=== PATIENT | male | born 1975 | race Hispanic/Latino ===

== ENCOUNTER 2018-07-15 11:50 | Emergency (ER) | payer OTHER ==
[~2018-07-15] VITALS: Ht 160 cm; Wt 78.9 kg
[2018-07-15] MEDS ORDERED: SODIUM CHLORIDE 0.9% 1000ML 1,000 ML IV STA (12:26)
[2018-07-15] MEDS ORDERED: KETOROLAC TROMETHAMINE 30 MG/ML VIAL IV STA (12:26)
[2018-07-15] MEDS ORDERED: DIPHENHYDRAMINE HCL INJ 50 MG/ML VIAL IV ONE (12:30)
[2018-07-15] MEDS ORDERED: METOCLOPRAMIDE HCL 10 MG/2ML VIAL IV ONE (12:30)
--- NOTE | 2018-07-15 13:06 | Diagnostic Imaging Report ---
EXAMINATION: CXR 2 VIEW - HOPD INDICATION: Chest pain COMPARISON: None FINDINGS: TUBES and LINES: None. LUNGS: Lungs are well inflated. Lungs are clear. There is no evidence of pneumonia or pulmonary edema. PLEURA: No pleural effusion or pneumothorax. HEART AND MEDIASTINUM: The cardiomediastinal silhouette is unremarkable. BONES AND SOFT TISSUES: No acute osseous lesion. Soft tissues are unremarkable. UPPER ABDOMEN: No free air under the diaphragm. IMPRESSION: No acute radiographic abnormality. Signed by: Dr. Asad Pittman MD on 07/15/2018 1:02 PM
--- NOTE | 2018-07-15 13:25 | Diagnostic Imaging Report ---
History: Headache, dizziness Comparison studies: None Technique: Axial images were obtained from the skull base to the vertex. Coronal and sagittal reconstructions obtained from the axial data. Dose modulation, iterative reconstruction, and/or weight based adjustment of the mA/kV was utilized to reduce the radiation dose to as low as reasonably achievable. Findings: Scalp/skull: No abnormalities. No fractures, blastic or lytic lesions. Extra-axial spaces: No masses. No fluid collections. Brain sulci: Appropriate for age. Ventricles: Normal in size and configuration. No hydrocephalus. Parenchyma: No abnormal densities. No masses, hemorrhage, acute or chronic cortical vascular insults. Sellar/suprasellar region: No abnormalities Craniocervical junction: Patent foramen magnum. No Chiari one malformation. IMPRESSION: No abnormalities . Signed by: DR Ismael Nash M.D. on 07/15/2018 1:22 PM
== END 2018-07-15 14:41 | disposition home or self-care (01) ==
LOC: FSED 11:50
DX: G44.211 Episodic tension-type headache, intractable (principal); R11.0 Nausea
CPT/HCPCS: 70450; 71046; 80053; 81003; 82553; 84484; 85025; 93005; 99284; J1200; J1885; J2765; J7030

== ENCOUNTER 2019-03-31 01:36 | Emergency (ER) | payer OTHER ==
[~2019-03-31] VITALS: Ht 160 cm; Wt 78.9 kg
--- OUTSIDE RECORDS SUMMARY | 2019-03-31 01:39 | XMS REPORT ---
Author Author [facility] Address Unknown Phone Unavailable Care Team Providers Care Serials Librarian Name Role Phone Melvin OLVERA Unavailable Unavailable Problems This patient has no known problems. Allergies, Adverse Reactions, Alerts This patient has no known allergies or adverse reactions. Medications This patient has no known medications. Results Test Description Test Time Test Comments Text Results Atomic Results Result Comments CT BRAIN WO-HOPD 2018-07-15 13:20:00 [place] [id number] Patient Name: ANDREA ZUNIGA MR #: [id number] : 1975 Age/Sex: 42/M Req #: [id number] Adm Physician: Ordered by: ADRIANA OLVERA MD Report #: [id number] Location: [facility] Room/Bed: Procedure: [id number] HOPD/CT BRAIN WO-HOPD Exam Date: 07/15/18 Exam Time: 1302 REPORT STATUS: Signed History: Headache, dizziness Comparison studies: None Technique: Axial images were obtained from the skull base to the vertex. Coronal and sagittal reconstructions obtained from the axial data. Dose modulation, iterative reconstruction, and/or weight based adjustment of the mA/kV was utilized to reduce the radiation dose to as low as reasonably achievable. Findings: Scalp/skull: No abnormalities. No fractures, blastic or lytic lesions. Extra-axial spaces: No masses. No fluid collections. Brain sulci: Appropriate for age. Ventricles: Normal in size and configuration. No hydrocephalus. Parenchyma: No abnormal densities. No masses, hemorrhage, acute or chronic cortical vascular insults. Sellar/suprasellar region: No abnormalities Craniocervical junction: Patent foramen magnum. No Chiari one malformation. IMPRESSION: No abnormalities . Signed by: DR Ismael Nash M.D. on 07/15/2018 1:22 PM Dictated By: ISMAEL BLANDON MD 1322 Transcribed By: RADHA on 07/15/18 1322 COPY TO: ADRIANA OLVERA MD CXR 2 VIEW - HOPD 2018-07-15 13:01:00 [place] [address] Patient Name: ANDREA ZUNIGA MR #: [id number] : 1975 Age/Sex: 42/M Req #: [id number] Adm Physician: Ordered by: ADRIANA OLVERA MD Report #: [id number] Location: [facility] Room/Bed: Procedure: [id number] HOPD/CXR 2 VIEW - HOPD Exam Date: 07/15/18 Exam Time: 1253 REPORT STATUS: Signed EXAMINATION: CXR 2 VIEW - HOPD INDICATION: Chest pain COMPARISON: None FINDINGS: TUBES and LINES: None. LUNGS: Lungs are well inflated. Lungs are clear. There is no evidence of pneumonia or pulmonary edema. PLEURA: No pleural effusion or pneumothorax. HEART AND MEDIASTINUM: The cardiomediastinal silhouette is unremarkable. BONES AND SOFT TISSUES: No acute osseous lesion. Soft tissues are unremarkable. UPPER ABDOMEN: No free air under the diaphragm. IMPRESSION: No acute radiographic abnormality. Signed by: Dr. Stephanie Kimble MD on 07/15/2018 1:02 PM Dictated By: STEPHANIE KIMBLE MD 1302 Transcribed By: RADHA on 07/15/18 1302 COPY TO: ADRIANA OLVERA MD
[2019-03-31 02:39] VITALS: BP 158/86
== END 2019-03-31 02:41 | disposition home or self-care (01) ==
LOC: FSED 01:36
DX: R30.0 Dysuria (principal)
CPT/HCPCS: 81003; 99282

== ENCOUNTER 2020-02-27 20:33 | Emergency (ER) | payer OTHER ==
[~2020-02-27] VITALS: Ht 160 cm; Wt 74.8 kg
--- NOTE | 2020-02-27 21:40 | Diagnostic Imaging Report ---
EXAM: CT Abdomen and Pelvis WITHOUT contrast INDICATION: RLQ AND RIGHT GROIN PAIN. PATIENT HAS HISTORY OF APPENDECTOMY COMPARISON: None. TECHNIQUE: Abdomen and pelvis were scanned utilizing a multidetector helical scanner from the lung base to the pubic symphysis without administration of IV contrast. Absence of intravenous contrast decreases sensitivity for detection of focal lesions and vascular pathology. Coronal and sagittal reformations were obtained. Routine protocol was performed. IV CONTRAST: None ORAL CONTRAST: None COMPLICATIONS: None RADIATION DOSE: Total DLP: 647.56 mGy*cm Estimated effective dose: (DLP x 0.015 x size factor) mSv CTDIvol has been reviewed. It is below the limits set by the Radiation Protocol Committee (RPC). Dose modulation, iterative reconstruction, and/or weight based adjustment of the mA/kV was utilized to reduce the radiation dose to as low as reasonably achievable. FINDINGS: LINES and TUBES: None. LOWER THORAX: Unremarkable HEPATOBILIARY: No focal hepatic lesions. No biliary ductal dilation. GALLBLADDER: No radio-opaque stones or sludge. No wall thickening. SPLEEN: No splenomegaly. PANCREAS: No focal masses or ductal dilatation. ADRENALS: No adrenal nodules KIDNEYS/URETERS: No hydronephrosis. No cystic or solid mass lesions. No stones. GI TRACT: There are scattered colonic diverticulosis without evidence of active inflammation. No abnormal distention, wall thickening, or evidence of bowel obstruction. Status post appendectomy. PELVIC ORGANS/BLADDER: Unremarkable. LYMPH NODES: No lymphadenopathy. VESSELS: Unremarkable. PERITONEUM / RETROPERITONEUM: No free air or fluid. BONES: Unremarkable. SOFT TISSUES: Unremarkable. IMPRESSION: No acute abdominopelvic abnormality to explain the patient's symptoms were identified. Signed by: Yusuf Guthrie MD on 02/27/2020 9:37 PM
--- NOTE | 2020-02-27 21:48 | Emergency Department Note ---
History of Present Illnes History of Present Illness Chief Complaint: Abdominal Complaints History of Present Illness This is a 44 year old male Chief Complaint Comment PT C/O ABD PAIN THAT HAS BEEN INTERMITTENT FOR OVER A MONTH NOW, STATES THAT HE FEELS SOME PAIN IN THE RT GROIN AREA AND THINKS IT MAY HAVE SOMETHING TO DO WITH PAIN? HAS APPT 03/13 WITH DOCTOR BUT FEELS LIKE HE CAN'T WAIT THAT LONG, MD TOLD HIM TO COME TO ER FOR CHECK UP . Historian: Patient Arrival Mode: Car Onset (how long ago): day(s) (5) Location: RIGHT ROMAN Quality: DULL Radiation: Denies non-radiation, Denies back, Denies neck, Denies extremity, Denies abdomen, Denies periumbilical, Denies flank, Denies proximal, Denies distal, Denies other Severity: mild Onset quality: gradual Duration (how long): day(s) (2) Progression: waxing and waning Chronicity: new Context: Denies recent illness, Denies recent surgery, Denies recent immobilization, Denies recent travel, Denies trauma/injury, Denies new medications, Denies hx of DVT/PE, Denies non-compliance w/ medications, Denies other Relieving factors: none Exacerbating factors: none Associated symptoms: Denies denies other symptoms, Denies confusion, Denies chest pain, Denies cough, Denies diaphoresis, Denies fever/chills, Denies headaches, Denies loss of appetite, Denies malaise, Denies nausea/vomiting, Denies rash, Denies seizure, Denies shortness of breath, Denies syncope, Denies weakness, Denies other Treatments prior to arrival: none Past Medical/Family History Physician Review I have reviewed the patient's past medical and family history. Any updates have been documented here. Past Medical History Recent Fever: No Clinical Suspicion of Infectio: No New/Unexplained Change in Ment: No Past Medical History: Hypertension, Diabetes, Hyperlipedemia Past Surgical History: Appendectomy Other Surgery: L ANKLE SCOPE Social History Smoking Cessation: Never Smoker Counseling Performed: No Alcohol Use: Occasional Any Illegal Drug Use: No Physically hurt or threatened: No Other Last Tetanus: UNK Any Pre-Existing Lines (PICC,: No Review of Systems Review of Systems Constitutional: Reports no symptoms EENTM: Reports no symptoms Cardiovascular: Reports no symptoms Respiratory: Reports no symptoms Gastrointestinal: Reports as per HPI Genitourinary: Reports no symptoms Musculoskeletal: Reports no symptoms Integumentary: Reports no symptoms Neurological: Reports no symptoms Psychological: Reports no symptoms Endocrine: Reports no symptoms Hematological/Lymphatic: Reports no symptoms Physical Exam Related Data Allergies: Coded Allergies: No Known Allergies (Unverified , 07/15/18) Triage Vital Signs Vital Signs Date Time Temp Pulse Resp B/P (MAP) Pulse Ox O2 Delivery O2 Flow Rate FiO2 02/27/20 20:34 98.4 93 18 150/99 98 Room Air Physical Exam CONSTITUTIONAL Constitutional: Present well-developed, Present well-nourished HENT HENT: Present normocephalic, Present atraumatic, Present oropharynx clear/moist, Present nose normal HENT L/R: Present left ext ear normal, Present right ext ear normal EYES Eyes: Reports PERRL, Reports conjunctivae normal NECK Neck: Present ROM normal PULMONARY Pulmonary: Present effort normal, Present breath sounds normal CARDIOVASCULAR Cardiovascular: Present regular rhythm, Present heart sounds normal, Present capillary refill normal, Present normal rate GASTROINTESTINAL Abdominal: Present soft, Present nontender, Present bowel sounds normal, Present tender (RIGHT GROIN AREA) GENITOURINARY Genitourinary: Present exam deferred SKIN Skin: Present warm, Present dry MUSCULOSKELETAL Musculoskeletal: Present ROM normal NEUROLOGICAL Neurological: Present alert, Present oriented x 3, Present no gross motor or sensory deficits PSYCHOLOGICAL Psychological: Present mood/affect normal, Present judgement normal Results Laboratory Lab results reviewed: Yes Imaging Imaging results reviewed: Yes Assessment & Plan Medical Decision Making MDM HERNIA LYMPH NODE Reassessment Reassessment time: 21:42 Reassessment BETTER Assessment & Plan Final Impression: (1) Abdominal pain, right lower quadrant (2) Deep inguinal pain, right Depart Disposition: HOME, SELF-CARE Last Vital Signs Date Time Temp Pulse Resp B/P (MAP) Pulse Ox O2 Delivery O2 Flow Rate FiO2 02/27/20 20:34 98.4 93 18 150/99 98 Room Air RACHEL COLBY MD Feb 27, 2020 21:48
[2020-02-27] MEDS ORDERED: DOXYCYCLINE HY100 MG PO (21:54)
[2020-02-27] MEDS ORDERED: NAPROSYN500 MG PO (21:54)
--- OUTSIDE RECORDS SUMMARY | 2020-02-27 22:20 | XMS REPORT | Continuity of Care Document ---
Author Author [facility] t Organization [facility] Address [address] [place] [address] Phone Unavailable Care Team Providers Care Machine Bunch Maker Name Role Phone Eduardo BLUE DO PCP RACHEL COLBY Attphys Unavailable Melvin OLVERA Attphys Unavailable Miladys Buck Attphys Suzette Marti Attphys David Sanches Attphys Sri Kelsey Attphys David Sanches Admphys Payers Payer Name Policy Type Policy Number Effective Date Expiration Date S [facility] [id number] 2018 00:00:00 [facility] Problems Condition Name Condition Details Condition Category Status Onset Date Resolution Date Last Treatment Date Treating Clinician Comments Source N18.2 - CHRONIC KIDNEY DISEASE, STAGE N18.2 - CHRONIC KIDNEY DISEASE, STAGE Active 08/26/2017 [facility] Diagnosis Active 2017-08-26 00:01:00 2017-09-07 14:33:00 [facility] BACK PAIN BACK PAIN Active 03/27/2017 [facility] Diagnosis Active 2017-03-27 00:00:00 2017-04-16 13:17:00 Jeronimo Reese ACUTE APPENDICITIS ACUT E APPENDICITIS Active 02/21/2015 [facility] Diagnosis Active 2015-02-21 00:00:00 2015-02-22 12:40:00 Jeronimo Reese ABD PAIN ABD PAIN Active 02/21/2015 [facility] Diagnosis Active 2015-02-21 00:00:00 2015-02-21 21:12:00 Jeronimo Reese ABDOMINAL PAIN ABDO CLEMENTE PAIN Active 12/24/2014 [facility] Diagnosis Active 2014-12-24 00:00:00 2015-02-22 10:28:00 [facility] Diabetes mellitus (disorder) D iabetes mellitus (disorder) Resolved Problem 12/14/2017 MELISSA Toscano,[facility] Problem Resolved 2017-12-14 13:01:17 Guilleor pop Reese Hypertensive disorder, systemic arterial (disorder) Hypertensive disorder, systemic arterial (disorder) Resolved Problem 12/14/2017 MELISSA Toscano,[facility] Problem Resolved 2017-12-14 13:01:17 [facility] ACUTE APPENDICITIS NOS ACUT E APPENDICITIS NOS Active [facility] Diagnosis Active 2015-02-22 12:40:00 M juan m Reese Chronic kidney disease, stage 2 (mild) Chronic kidney disease, stage 2 (mild) 09/14/2017 12/14/2017 MELISSA Toscano Problem 2017-09-14 04:06:58 2017-12-14 13:01:17 2017-12-14 13:01:17 [facility] Discharge Diagnosis: Diarrhea due to drug Discharge Diagnosis: Diarrhea due to drug 12/25/2014 12/28/2014 [facility] Problem 2014-12-25 05:00:00 2014-12-28 04:04:13 2014-12-28 04:04:13 [facility] Allergies, Adverse Reactions, Alerts This patient has no known allergies or adverse reactions. Social History Social Habit Start Date Stop Date Quantity Comments Source Social History 2015-03-05 14:33:28 2015-03-05 14:33:28 [facility] Medications Ordered Medication Name Filled Medication Name Start Date Stop Da te Current Medication? Ordering Clinician Indication Dosage Frequency Signature (SIG) Comments Components Source Ondansetron 2017-03-28 00:36:00 Yes Notes: (Same as: Zofran) MEDICATION WASTE Product Size: 4 mg Product Wasted: ___ mg [facility] Saline Flush 0.9% 2017-03-28 00:36:00 No Notes: Same as: BD Posiflush Sterile [facility] Sodium Chloride 0.9% (Bolus) IV 2017-03-28 00:36:00 Yes 1,000 mL, 2,000 ml/hr, Infuse Over: 30 minutes, Route: IV, 1,000, Drug form: INJ, ONCE, Priority: STAT, Dosing Weight 78.182 kg, Start date: 03/27/17 19:36:00 CDT, Duration: 1 doses or times, Stop date: 03/27/17 19:36:00 CDT Jeronimo Reese Morphine 2017-03-28 00:36:00 Yes Not es: (Same as:MORPhine Sulfate) Jeronimo Montanaann Docusate Sodium 100 MG Oral Capsule [Colace] 2015-02-23 16:47:00 Yes 100 mg = 1 cap, PO, BID, PRN Constipation, # 20 cap, 0 Refill(s) Jeronimo Montanaann Acetaminophen 300 MG / Codeine Phosphate 30 MG Oral Tablet [Tylenol with Codeine #3] 2015-02-23 16:47:00 Yes 1 tab, PO, Q6H, PRN pain, X 7 day, # 28 tab, 0 Refill(s) Jeronimo Montanaann docusate sodium 100 mg oral capsule 2015-02-23 14:00:00 No Notes: (Same as: Colace) (Do Not Crush) Gerhard Reese [facility] 2015-02-23 05:00:00 No Notes: Infuse over 15 minutes Do not exceed 4gm/day of acetaminophen MEDICATION WASTE Product Size: 1000 mg Product Wasted: ___ mg Jeronimo Nan danilo Simvastatin 2015-02-23 02:00:00 No Notes: ( Same as: Zocor) Jeronimo Reese Ancef 2015-02-23 00:35:00 No 2 gm, Route: IVPB, ONCE, Dosing Weight 74.545, kg, Start date: 02/22/15 19:35:00, Duration: 1 doses or times, Stop date: 02/22/15 19:35:00 Jeronimo Reese Saline Flush 0.9% 2015-02-23 00:27:00 No Notes: (Same as: BD Posiflush) Jeronimo Hugh Ondansetron 2015-02-23 00:27:00 No Notes: (Same as: Zofran) MEDICATION WASTE Product Size: 4 mg Product Wasted: ___ mg Jeronimo Reese Sodium Chloride 0.154 MEQ/ML Injectable Solution 2015-02-23 00:2 7:00 No 1,000 mL, Rate: 125 ml/hr, I nfuse over: 8 hr, Route: IV, Dosing Weight 74.545 kg, Total Volume: 1,000, Start date: 02/22/15 19:27:00, Duration: 30 day, Stop date: 03/24/15 19:26:00 [facility] Morphine 2015-02-23 00:27:00 No Not es: (Same as:MORPhine Sulfate) [facility] Acetaminophen 325 MG / Hydrocodone Bitartrate 5 MG Oral Tabl et 2015-02-23 00:27:00 No Notes: (Sa me as: [place] 325/5) Do not exceed 4gm/day of acetaminophen. [facility] Lactated Ringers IV 1,000 mL 2015-02-22 19:26:00 No 1,000 mL, Rate: 25 ml/hr, Infuse over: 40 hr, Route: IV, Dosing Weight 74.545 kg, Total Volume: 1,000, Start date: 02/22/15 14:26:00, Duration: 1 day, Stop date: 02/23/15 14:25:00 [facility] Amlodipine 10 MG / Benazepril hydrochloride 40 MG Oral Capsu le 2015-02-22 14:00:00 No 1 cap, Rou te: PO, Dosing Weight 74.545, kg, Daily, Start date: 02/22/15 9:00:00, Duration: 30 day, Stop date: 03/23/15 9:00:00 [facility] Prinivil 2015-02-22 14:00:00 No Not es: (Same as: Javier Chungstrirachelle) [facility] Norvasc 2015-02-22 14:00:00 No Notes: (Same as: Huy) [facility] pneumococcal capsular polysaccharide typ e 1 vaccine / pneumococcal capsular polysaccharide type 10A vaccine / pneumococcal capsular polysaccharide type 11A vaccine / pneumococcal capsular polysaccharide type 12F vaccine / pneumococcal capsular polysacchar 2015-02-22 14:00:00 No Notes: (Same as: Pneumovax 23) Refrigerate [facility] Mefoxin 2015-02-22 11:30:00 No Notes: (Same As: Mefoxin) MEDICATION WASTE Product Size: 2000 mg Product Wasted: ___ mg [facility] Saline Flush 0.9% 2015-02-22 06:38:00 No Notes: (Same as: BD Posiflush) [facility] Ondansetron 2015-02-22 06:38:00 No Notes: (Same as: Marla) MEDICATION WASTE Product Size: 4 mg Product Wasted: ___ mg Jeronimo Reese Morphine 2015-02-22 06:38:00 No Not es: (Same as:MORPhine Sulfate) Jeronimo Reese Acetaminophen 2015-02-22 06:38:00 No Notes: Do not exceed 4 gm/day. (Same as: Tylenol) Jeronimo Reese Sodium Chloride 0.154 MEQ/ML Injectable Solution 2015-02-22 06:3 8:00 No 1,000 mL, Rate: 125 ml/hr, I nfuse over: 8 hr, Route: IV, Dosing Weight 74.545 kg, Total Volume: 1,000, Start date: 02/22/15 1:38:00, Duration: 30 day, Stop date: 03/24/15 1:37:00 Jeronimo Reese Enoxaparin 2015-02-22 06:00:00 No Notes: (S sari as: Lovenox) Jeronimo Reese Mefoxin 2015-02-22 06:00:00 No Notes: (Same As: Mefoxin) Jeronimo Reese Dextrose 50% Syringe 2015-02-22 05:53:00 No 25 gm, 50 mL, Route: IVP, Drug Form: INJ, Dosing Weight 74.545, kg, PRN, PRN Blood Glucose Results, Start date: 02/22/15 0:53:00, Duration: 30 day, Stop date: 03/24/15 0:52:00 Jeronimo Reese Glucagon 2015-02-22 05:53:00 No 1 mg, Route: IM, Drug form: PDR/INJ, PRN, Dosing Weight 74.545, kg, PRN Blood Glucose Results, Start date: 02/22/15 0:53:00, Duration: 30 day, Stop date: 03/24/15 0:52:00 Jeronimo Reese Insulin, Aspart, Human 2015-02-22 05:53:00 No Notes: Roll in palms of hands gently; Do not shake vigorously. (Same as: NovoLOG) "single patient use only" Stable for 28 days at room temperature. Expires in days from Date Jeronimo Reese Dilaudid 2015-02-22 05:42:00 No 1 mg, 1 mL, Route: IV, Drug form: INJ, Q6H, Dosing Weight 74.545, kg, PRN Pain Score 6-10, Start date: 02/22/15 0:42:00, Duration: 30 day, Stop date: 03/24/15 0:41:00, pa [facility] Morphine 2015-02-22 05:42:00 No Not es: (Same as:MORPhine Sulfate) [facility] Zofran 2015-02-22 05:39:00 No Notes: (Same as: Zofran) MEDICATION WASTE Product Size: 4 mg Product Wasted: ___ mg [facility] normal saline 0.9% IV 1,000 mL 2015-02-22 05:37:00 No 1,000 mL, Rate: 100 ml/hr, Infuse over: 10 hr, Route: IV, Dosing Weight 74.545 kg, Total Volume: 1,000, Start date: 02/22/15 0:37:00, Duration: 30 day, Stop date: 03/24/15 0:36:00 [facility] Sodium Chloride 0.154 MEQ/ML Injectable Solution 2015-02-22 04:4 8:00 No 1,000 mL, 1000 ml/hr, Infuse Over: 1 hr, Route: IV, 1,000, Drug form: INJ, ONCE, Priority: STAT, Dosing Weight 74.545 kg, Start date: 02/21/15 23:48:00, Duration: 1 doses or times, Stop date: 02/21/15 23:48:00 [facility] Mefoxin 2015-02-22 04:48:00 No Notes: (Same As: Mefoxin) [facility] Sodium Chloride 0.154 MEQ/ML Injectable Solution 2015-02-22 03:3 8:00 No 1,000 mL, 1,000 ml/hr, Infus e Over: 1 Hour, Route: IV, ONCE, Priority: STAT, Dosing Weight 74.545 kg, Start date: 02/21/15 22:38:00, Duration: 1 doses or times, Stop date: 02/21/15 22:38:00 Mikey woodard [facility] Morphine 2015-02-22 03:37:00 No 4 mg, Route: IVP, Drug form: INJ, ONCE, Dosing Weight 74.545, kg, Priority: STAT, Start date: 02/21/15 22:37:00, Stop date: 02/21/15 22:37:00 [facility] Ondansetron 2015-02-22 03:37:00 No 4 mg, Route: IVP, Drug form: INJ, ONCE, Dosing Weight 74.545, kg, Priority: STAT, Start date: 02/21/15 22:37:00, Stop date: 02/21/15 22:37:00 [facility]-02-[facility] 02:05:00 No 20 mg, Route: IM, ONCE, Dosing Weight 74.545, kg, Priority: STAT, Start date: 02/21/15 21:05:00, Stop date: 02/21/15 21:05:00 [facility] Ondansetron 2015-02-22 02:05:00 No 4 mg, Route: IVP, ONCE, Dosing Weight 74.545, kg, Priority: STAT, Start date: 02/21/15 21:05:00, Stop date: 02/21/15 21:05:00 [facility] Morphine 2015-02-22 02:05:00 No 4 mg, Route: IVP, ONCE, Dosing Weight 74.545, kg, Priority: STAT, Start date: 02/21/15 21:05:00, Stop date: 02/21/15 21:05:00 [facility] Famotidine 2015-02-22 02:05:00 No 20 mg, Route: IVP, ONCE, Dosing Weight 74.545, kg, Priority: STAT, Start date: 02/21/15 21:05:00, Stop date: 02/21/15 21:05:00 [facility] GI cocktail 2015-02-22 02:05:00 No 30 mL, Route: PO, Dosing Weight 74.545, kg, ONCE, STAT, Start date: 02/21/15 21:05:00, Stop date: 02/21/15 21:05:00 [facility] Sodium Chloride 0.154 MEQ/ML Injectable Solution 2015-02-22 02:0 5:00 No 1,000 mL, Infuse Over: 1 hr, Route: IV, ONCE, Priority: STAT, Dosing Weight 74.545 kg, Start date: 02/21/15 21:05:00, Duration: 1 doses or times, Stop date: 02/21/15 21:05:00 [facility] Saline Flush 0.9% 2015-02-22 02:05:00 No Notes: (Same as: BD Posiflush) [facility] Atropine Sulfate 0.025 MG / Diphenoxylat e Hydrochloride 2.5 MG Oral Tablet [Lomotil] 2014-12-25 06:35:00 Yes 1 tab, PO, QID, PRN for loose stool, X 3 day, # 12 tab, 0 Refill(s) Me morial [facility] Vital Signs Vital Name Observation Time Observation Value Comments Source Temperature Oral (F) 2017-03-28 00:34:00 97.9 F [facility] Heart Rate 2017-03-28 00:34:00 [facility] Respitory Rate 2017-03-28 00:34:00 [facility] Weight 2017-03-28 00:34:00 [facility] BMI Calculated 2017-03-28 00:34:00 [facility] Height 2017-03-28 00:34:00 160.02 cm [facility] Systolic (mm Hg) 2017-03-28 00:34:00 Mikey rial [facility] Diastolic (mm Hg) 2017-03-28 00:34:00 [facility] Temperature Oral (F) 2015-02-23 17:00:00 98.4 F [facility] Respitory Rate 2015-02-23 17:00:00 [facility] Heart Rate 2015-02-23 17:00:00 [facility] Systolic (mm Hg) 2015-02-23 17:00:00 Mikey rial [facility] Diastolic (mm Hg) 2015-02-23 17:00:00 [facility] Respitory Rate 2015-02-23 13:00:00 [facility] Heart Rate 2015-02-23 13:00:00 [facility] Systolic (mm Hg) 2015-02-23 13:00:00 Mikey rial [facility] Diastolic (mm Hg) 2015-02-23 13:00:00 [facility] Temperature Oral (F) 2015-02-23 13:00:00 99.2 F [facility] Respitory Rate 2015-02-23 11:42:00 [facility] Heart Rate 2015-02-23 09:46:00 [facility] Systolic (mm Hg) 2015-02-23 09:46:00 Mikey rial [facility] Diastolic (mm Hg) 2015-02-23 09:46:00 [facility] Temperature Oral (F) 2015-02-23 09:46:00 98.6 F [facility] Weight 2015-02-22 01:24:00 [facility] BMI Calculated 2015-02-22 01:24:00 [facility] Height 2015-02-22 01:24:00 157.48 cm [facility] Temperature Oral (F) 2014-12-25 06:34:00 98.5 F [facility] Heart Rate 2014-12-25 06:34:00 [facility] Systolic (mm Hg) 2014-12-25 06:34:00 Mikey rial [facility] Diastolic (mm Hg) 2014-12-25 06:34:00 [facility] Respitory Rate 2014-12-25 06:34:00 [facility] Respitory Rate 2014-12-25 01:34:00 [facility] Heart Rate 2014-12-25 01:34:00 [facility] Systolic (mm Hg) 2014-12-25 01:34:00 Mikey rial [facility] Diastolic (mm Hg) 2014-12-25 01:34:00 [facility] Temperature Oral (F) 2014-12-25 01:34:00 98.6 F [facility] Weight 2014-12-25 01:34:00 [facility] Procedures Procedure Date / Time Performed Performing Clinician [facility] e Laparoscopic appendectomy 2015-02-22 05:00:00 Sd morial [facility] Ankle joint operations 2005-06-21 00:00:00 [facility] Encounters Start Date/Time End Date/Time Encounter Type Admission Type [email or web address] Care Department Encounter ID Source 2019-03-31 01:36:00 2019-03-31 02:41:00 Departed Emergency Room [facility] [id number] [facility] 2018-07-15 11:50:00 2018-07-15 14:41:00 Departed Emergency Room 1 WADE ADRIANA [facility] [id number] [facility] 2017-09-07 13:55:00 2017-09-07 23:59:00 Outpatient Melvin Buck [facility] [id number] 2017-03-27 19:31:00 2017-03-27 22:24:00 Outpatient Rajinder Marti [facility] [id number] 2015-02-21 20:19:00 2015-02-23 14:10:00 Outpatient Chicho Sanches [facility] [id number] 2014-12-24 20:16:00 2014-12-25 01:40:00 Outpatient Jessica Kelsey IE [place] [id number] Results Test Description Test Time Test Comments Results Result Comments Source CT ABD/PEL WO CONTRAST-HOPD 2020-02-27 21:32:00 [place] [address] Patient Name: ANDREA ZUNIGA MR #: [id number] : 1975 Age/Sex: 44/M Req #: [id number] Adm Physician: Ordered by: RACHEL COLBY MD Report #: [id number] Location: [facility] Room/Bed: Procedure: [id number] HOPD/CT ABD/PEL WO CONTRAST-HOPD Exam Date: 02/27/20 Exam Time: 2106 REPORT STATUS: Signed EXAM: CT Abdomen and Pelvis WITHOUT contrast INDICATION: RLQ AND RIGHT GROIN PAIN. PATIENT HAS HISTORY OF APPENDECTOMY COMPARISON: None. TECHNIQUE: Abdomen and pelvis were scanned utilizing a multidetector helical scanner from the lung base to the pubic symphysis without administration of IV contrast. Absence of intravenous contrast decreases sensitivity for detection of focal lesions and vascular pathology. Coronal and sagittal reformations were obtained. Routine protocol was performed. IV CONTRAST: None ORAL CONTRAST: None COMPLICATIONS: None RADIATION DOSE: Total DLP: 647.56 mGy*cm Estimated effective dose: (DLP x 0.015 x size factor) mSv CTDIvol has been reviewed. It is below the limits set by the Radiation Protocol Committee (RPC). Dose modulation, iterative reconstruction, and/or weight based adjustment of the mA/kV was utilized to reduce the radiation dose to as low as reasonably achievable. FINDINGS: LINES and TUBES: None. LOWER THORAX: Unremarkable HEPATOBILIARY: No focal hepatic lesions. No biliary ductal dilation. GALLBLADDER: No radio-opaque stones or sludge. No wall thickening. SPLEEN: No splenomegaly. PANCREAS: No focal masses or ductal dilatation. ADRENALS: No adrenal nodules KIDNEYS/URETERS: No hydronephrosis. No cystic or solid mass lesions. No stones. GI TRACT: There are scattered colonic diverticulosis without evidence of active inflammation. No abnormal distention, wall thickening, or evidence of bowel obstruction. Status post appendectomy. PELVIC ORGANS/BLADDER: Unremarkable. LYMPH NODES: No lymphadenopathy. VESSELS: Unremarkable. PERITONEUM / RETROPERITONEUM: No free air or fluid. BONES: Unremarkable. SOFT TISSUES: Unremarkable. IMPRESSION: No acute abdominopelvic abnormality to explain the patient's symptoms were identified. Signed by: Prosper Barrera MD on 02/27/2020 9:37 PM Dictated By: PROSPER BARRERA MD 36 Transcribed By: RADHA on 02/27/202136 COPY TO: RACHEL COLBY MD CT BRAIN -HOPD 2018-07-15 13:20:00 [place] [address] Patient Name: ANDREA ZUNIGA MR #: [id number] : 1975 Age/Sex: 42/M Req #: [id number] Adm Physician: Ordered by: ADRIANA OLVERA MD Report #: [id number] Location: [facility] Room/Bed: Procedure: [id number] HOPD/CT BRAIN WO-HOPD Exam Date: 07/15/18 Exam [...] CXR 2 VIEW - HOPD 2018-07-15 13:01:00 [place] [address] Patient Name: ANDREA ZUNIGA MR #: [id number] : 1975 Age/Sex: 42/M Req #: [id number] Adm Physician: Ordered by: ADRIANA OLVERA MD Report #: [id number] Location: [facility] Room/Bed: Procedure: [id number] HOPD/CXR 2 VIEW - HOPD Exam Date: [...] 07/15/18 1302 COPY TO: ADRIANA OLVERA MD CHEM PANEL 2015-02-22 10:36:00 85 [facility] CHEM PANEL 2015-02-22 10:36:00 0.8 [facility] CHEM PANEL 2015-02-22 10:36:00 118 [facility] CHEM PANEL 2015-02-22 10:36:00 134 [facility] CHEM PANEL 2015-02-22 10:36:00 4.2 [facility] CHEM PANEL 2015-02-22 10:36:00 100 [facility] CHEM PANEL 2015-02-22 10:36:00 24 [facility] CHEM PANEL 2015-02-22 10:36:00 3.9 [facility] CHEM PANEL 2015-02-22 10:36:00 62 [facility] CHEM PANEL 2015-02-22 10:36:00 1.4 [facility] CHEM PANEL 2015-02-22 10:36:00 13 [facility] CHEM PANEL 2015-02-22 10:36:00 19 [facility] CHEM PANEL 2015-02-22 10:36:00 8.8 [facility] CHEM PANEL 2015-02-22 10:36:00 31 [facility] CHEM PANEL 2015-02-22 10:36:00 7.4 [facility] CHEM PANEL 2015-02-22 10:36:00 14.2 [facility] CHEM PANEL 2015-02-22 10:36:00 14 [facility] CHEM PANEL 2015-02-22 10:36:00 1.1 [facility] CHEM PANEL 2015-02-22 10:36:00 3.5 [facility] CHEM PANEL 2015-02-22 10:36:00 62 [facility] CHEM PANEL 2015-02-22 10:36:00 1.4 [facility] HEMATOLOGY 2015-02-22 10:36[facility] 2015-02-22 10:36:00 78.7 [facility] HEMATOLOGY 2015-02-22 10:36:00 14.1 [facility] HEMATOLOGY 2015-02-22 10:36:00 2.0 [facility] HEMATOLOGY 2015-02-22 10:36:00 0.4 [facility] HEMATOLOGY 2015-02-22 10:36:00 [facility] 2015-02-22 10:36:00 [facility] 2015-02-22 10:36:00 1.8 [facility] 2015-02-22 10:36:00 43.1 [facility] 2015-02-22 10:36:00 Test Item MCH (test code = MCH) 27.4 pg 27.0-31.0 [facility] IqoitujCBEXAZJYTG1730-44-48 10:36:0084.3[facility]ann[facility]OLOGY 2015-02-22 10:36:0013.3[facility] RzvcleoCZQZSCRIXJ8553-12-21 10:36:0032.5[facility] LifvhpwJXZLOZCAGJ1000-07-38 10:36:005.11[facility] NyghocvGRELMIVLFW7458-97-21 10:36:0017.9[facility] CpfddqwGYHLAOUBVA5601-12-79 10:36:0014.0[facility] EPGAZUMLNA4123-63-89 10:36:008.7[facility] SriigntVDDVAOJZXY1797-64-60 10:36:82594 [facility] FmvqnfqZQPAZNIDRH2154-67-19 10:36:16056Ammdcvxx HermannHEMATOLOGY 2015-02-22 10:36:00* Test Item Value Reference Range Interpretation Comments PTT (test code = PTT) 39.5 s 22.9-35.8 [facility]annSPECIAL QXUCNKPGJ8093-11-75 10:36:006.3[facility] HermannCHEM ZQNVA9545-34-36 05:38:001.2[facility] HermannCHEM QKUIU5487-50-73 02:11:09349 [facility]annCHEM TJCML5516-78-81 02:11:0062[facility] HermannELECTROLYTES 2015-02-22 02:11:0097[facility] QfkrnzuLZLVHTRMJFDP0680-19-70 02:11:0010.0[facility] YjpdoiqBNZMUBHOZJRE3164-18-53 02:11:58474Rjkaehzi JlsgyynTJJHSFKXZZWD9585-66-95 02:11:004.1[facility] KloublrNJRYKDYSITGG7699-81-18 02:11:0053[facility] TDAUFPBIUDFM0870-30-93 02:11:004.8[facility] JvifxvfGHTVKNMRGKMO5330-09-69 02:11:008.7[facility] YhlvhlzZEZAINHRUDYK7001-24-52 02:11:0099[facility] FJYEHVKKSKBC2312-85-94 02:11:000.6[facility] RgeypynUVCYNZSDOPNV2223-35-82 02:11:0028[facility] GzptbdkGKBSGXIDODXU9890-13-07 02:11:0022[facility] XKHEOZLUBBRF4294-51-12 02:11:001.6[facility] TiojcryIFFBXLLOXTBU3203-18-83 02:11:0013[facility] JpvnduePHSEBIMVLBXG2095-49-02 02:11:0037[facility] XWEBKVCAMTTH1213-87-64 02:11:11216Tjvokxjs WfipteePORQHWGDHYTF9007-44-73 02:11:003.9[facility] LtxxkpeGIVTOTLSQNKJ0509-24-03 02:11:001.2[facility] LTNWGHTHFVLC5917-47-94 02:11:0014[facility] TudmudnGZYKRAVZSUNX7008-67-30 02:11:00 14.1[facility] YljvibxTSRPFJGPFV5372-74-08 02:11:59906Lckkvcqq HermannHEMATOLOGY 2015-02-22 02:11:008.8[facility] LfmtiagKAWQJJFWGF1428-21-82 02:11:005.60[facility] DuhcxkfZMTUYTZYPJ4098-69-50 02:11:0015.3[facility] KwrjelqMCKJQFUNCW4609-34-75 02:11:0013.3[facility] LmvsnfhKEDECRZHPI8478-00-92 02:11:0015.9[facility] NGCBJUWDVV4422-68-66 02:11:0046.7[facility] SwofnvaBQGPHVJSAH0112-30-21 02:11:00 83.4[facility] OsngdymLGBPLIXEPT4102-12-89 02:11:0032.8[facility] HermannHEMATOLOGY 2015-02-22 02:11:00* Test Item Value Reference Range Interpretation Comments MCH (test code = MCH) 27.3 pg 27.0-31.0 [facility] ZinafvaQKIMPTHNZL9501-28-77 02:11:000.4[facility] HermannHEMATOLOGY 2015-02-22 02:11:000.1[facility] LslnivfOHDIEQIRAN2042-15-77 02:11:002.3[facility] VdgzoweGHTYYKRCZZ9453-32-23 02:11:000.9[facility] AaczlydJLZGWWDJBH5353-39-29 02:11:000.7[facility] VemhygdEDPYOFRQEH3093-96-24 02:11:0014.5[facility] QFWSKRAKGL9234-30-59 02:11:005.9[facility] VesmhggTAJTGXGRRX0590-95-45 02:11:00 91.1[facility]annURINE AND TITDH2829-52-37 02:11:00<1[facility] AND ZXWHQ4266-09-90 02:11:00Negative *NA*(02/21/15 9:11 PM)[facility] LPCTR2216-80-76 02:11:001[facility] ZBOTG5206-91-16 02:11:00 7.0[facility] [id number] 02:11:00Clear (02/21/15 9:11 PM) [facility] [id number] 02:11:001.035[facility] [id number] 02:11:00Yellow *NA*(02/21/15 9:11 PM)[facility] [id number] 02:11:00Negative (02/21/15 9:11 PM)[facility] STOOL 2015-02-22 02:11:00Negative (02/21/15 9:11 PM)[facility] STOOL 2015-02-22 02:11:00Negative (02/21/15 9:11 PM)[facility] ST[facility]OL 2014-12-25 03:00:00Negative (12/24/14 10:00 PM)[facility] ST[facility] 2014-12-25 03:00:00Negative (12/24/14 10:00 PM)[facility] ST[facility] 2014-12-25 03:00:00Negative (12/24/14 10:00 PM)[facility] ST[facility] 2014-12-25 03:00:00<1[facility] [id number] 03:00:00Negative *NA*(12/24/14 10:00 PM)[facility] [id number] 03:00:00Clear (12/24/14 10:00 PM)[facility] [id number] 03:00:006.0[facility] [id number] 03:00:001.012[facility]annCARDIAC ENZYMES 2014-12-25 02:55:00<0.5[facility] [id number] 02:55:0063 [facility] [id number] 02:55:00<0.8[facility] [id number] 02:55:00<0.02[facility]annCHEM [id number] 02:55:0048 [facility]annCHEM [id number] 02:55:81846Kijhedxk HermannELECTROLYTES 2014-12-25 02:55:24027Tammwpyb LybkmklFXKHBHXGVIII8018-44-22 02:55:003.5[facility] ShgaygvMPVPSJPFINHS5320-47-59 02:55:17373[place] DhvhgluUDRNJQSRXMWH0187-22-62 02:55:0062[facility] NqfwibmFQDURPMEUOVD1937-91-40 02:55:0015[facility] MGIAUVYNEODY2422-17-79 02:55:0027[facility] QemmlstUQRRDJLCLUQD4459-40-10 02:55:00 34[facility] PzodbwxSHTHUPFELNXF3223-64-12 02:55:004.2[facility] HermannELECTROLYTES 2014-12-25 02:55:0095[facility] LzzjmgvYGCWABGRJDEB0245-28-96 02:55:009.4[facility] StpchlqDNAUSXPCTNHR6498-26-80 02:55:003.9[facility] SfjaqhqUYJBNKPSUNSC1296-25-31 02:55:008.1[facility] NejtkqqWUYXJRDVRLOP0098-48-73 02:55:001.1[facility] TESKARZZCBHK4054-62-44 02:55:0010[facility] FjoebaoNSGNXDBKYAGS8846-17-09 02:55:00 12.5[facility] IjhqrjdGTHZOPJIRPXW3846-89-78 02:55:000.5[facility] GBGGENHCYLXI7015-98-76 02:55:0014[facility] JfbchdsDLOEHSRCMVDA0145-81-23 02:55:00 125[facility] UmptgbhPNWQHGNPOVGQ2365-12-46 02:55:001.4[facility]annHEMATOLOGY 2014-12-25 02:55:000.2[facility] AuxxdrqZWVLYRNXWY3621-70-45 02:55:000.1[facility] HuffvcyIFXMZXTQCC2767-64-58 02:55:004.4[facility] CnjwugpRSMRSGCZGH1471-26-27 02:55:003.5[facility] BqecuqmFLNGPIJQTY1990-01-88 02:55:000.9[facility] GCLXSOMKUL7924-92-76 02:55:001.2[facility] GbqywikFNQVMXTEYM7526-07-26 02:55:00 38.1[facility] IszxgmfZBBKCGQNVH2109-59-17 02:55:0047.9[facility]annHEMATOLOGY 2014-12-25 02:55:0010.2[facility] WmjgoncGNLALNFOJJ1363-63-07 02:55:002.6[facility] RczldxrIADBFFEMZR9318-20-79 02:55:00* Test Item Value Reference Range Interpretation Comments MCH (test code = MCH) 28.8 pg 27.0-31.0 [facility] IqeacbaNEFQVKFPGN0101-24-23 02:55:0034.7[facility]annHEMATOLOGY 2014-12-25 02:55:0013.0[facility] DeefdifMBGRZTNMNG6149-14-08 02:55:39125Cwqwdkwb OvthlxmNLAOARYBKR2664-70-56 02:55:008.2[facility] AndcfufXNQKKJCTTQ3846-00-23 02:55:005.27[facility] HknnywgTMRNVQWHXS2971-32-54 02:55:0083.1[facility] YARXSLYPEY3741-11-16 02:55:0043.9[facility] TcqwrtbWZYPNNVGFW9252-56-73 02:55:00 15.2[facility] QhvxggnKGKKRVCOEG6737-72-45 02:55:009.3[facility]
== END 2020-02-27 22:06 | disposition home or self-care (01) ==
LOC: FSED 20:55
DX: R10.31 Right lower quadrant pain (principal); I10 Essential (primary) hypertension; E11.9 Type 2 diabetes mellitus without complications; E78.5 Hyperlipidemia, unspecified
CPT/HCPCS: 74176; 80053; 85025; 99284

== ENCOUNTER 2021-04-01 11:53 | Emergency (ER) | payer OTHER ==
[~2021-04-01] VITALS: Ht 160 cm; Wt 71.2 kg
[~2021-04-01 11:53] MED LIST: DOXYCYCLINE HY100 MG PO; NAPROSYN500 MG PO
[2021-04-01] MEDS ORDERED: RABEPRAZOLE SOD20 MG (12:19)
[2021-04-01] MEDS ORDERED: SIMVASTATIN20 MG PO (12:19)
[2021-04-01] MEDS ORDERED: FENOFIBRATE134 MG (12:20)
[2021-04-01] MEDS ORDERED: LOTREL 10-40 M1 EACH (12:21)
[2021-04-01] MEDS ORDERED: BYSTOLIC5 MG PO (12:21)
[2021-04-01] MEDS ORDERED: JARDIANCE10 MG (12:22)
[2021-04-01] MEDS ORDERED: FAMOTIDINE 20 MG/2 ML VIAL IV NR (13:00)
[2021-04-01] MEDS ORDERED: SODIUM CHLORIDE 0.9% 1000ML 1,000 ML IV SCH (13:00)
[2021-04-01] MEDS ORDERED: IOPAMIDOL 370 MG/ML 200 ML INFUS..BTL INJ ONE (14:22)
[2021-04-01] MEDS ORDERED: SODIUM CHLORIDE 0.9% 50ML 50 ML ONE (14:22)
[2021-04-01] MEDS ORDERED: BUSPIRONE HCL7.5 MG PO (14:37)
== END 2021-04-01 14:54 | disposition home or self-care (01) ==
LOC: FSED 12:00
DX: R55 Syncope and collapse (principal); F41.0 Panic disorder [episodic paroxysmal anxiety]; R10.10 Upper abdominal pain, unspecified; E11.65 Type 2 diabetes mellitus with hyperglycemia; I10 Essential (primary) hypertension; E78.5 Hyperlipidemia, unspecified; K21.9 Gastro-esophageal reflux disease without esophagitis; R94.31 Abnormal electrocardiogram [ECG] [EKG]
CPT/HCPCS: 74177; 80053; 81003; 82553; 84484; 85025; 93005; 99284; J7030; Q9967

== ENCOUNTER 2022-07-11 06:48 | Emergency (ER) | payer OTHER ==
[~2022-07-11] VITALS: Ht 160 cm; Wt 74.8 kg
[~2022-07-11 06:48] MED LIST changes: +BUSPIRONE HCL7.5 MG PO; +BYSTOLIC5 MG PO; +FENOFIBRATE134 MG; +JARDIANCE10 MG; +LOTREL 10-40 M1 EACH; +RABEPRAZOLE SOD20 MG; +SIMVASTATIN20 MG PO
[2022-07-11] MEDS ORDERED: TRAMADOL HCL100 MG PO (07:20)
[2022-07-11] MEDS ORDERED: METFORMIN HCL500 M1 PO (07:20)
[2022-07-11] MEDS ORDERED: VITAMIN B122500 MCG PO (07:20)
[2022-07-11] MEDS ORDERED: GLIMEPIRIDE2 MG PO (07:20)
[2022-07-11] MEDS ORDERED: DICLOFENAC POTA50 MG PO (07:20)
[2022-07-11] MEDS ORDERED: KETOROLAC TROMETHAMINE 30 MG/ML VIAL IV STA (07:23)
[2022-07-11] MEDS ORDERED: LACTATED RINGER'S 1,000 ML INJ STA (07:25)
[2022-07-11] MEDS ORDERED: METOCLOPRAMIDE HCL 10 MG/2ML VIAL IV ONE (07:30)
[2022-07-11] MEDS ORDERED: ACETAMINOPHEN 325 MG TAB PO ONE (07:30)
[2022-07-11] MEDS ORDERED: METOCLOPRAMIDE HCL 10 MG/2ML VIAL ONE (07:54)
[2022-07-11] MEDS ORDERED: ACETAMINOPHEN 325 MG TAB ONE (07:54)
[2022-07-11] MEDS ORDERED: LACTATED RINGER'S 1,000 ML ONE (07:54)
[2022-07-11] MEDS ORDERED: KETOROLAC TROMETHAMINE 30 MG/ML VIAL ONE (07:54)
== END 2022-07-11 08:43 | disposition home or self-care (01) ==
LOC: FSED 07:00
DX: R51.9 Headache, unspecified (principal); I10 Essential (primary) hypertension; E11.9 Type 2 diabetes mellitus without complications; E78.5 Hyperlipidemia, unspecified; K21.9 Gastro-esophageal reflux disease without esophagitis
CPT/HCPCS: 96374; 96375; 99283; J1885; J2765; J7121